=== PATIENT | female | born 1990 | race African-American/Black ===

== ENCOUNTER 2023-05-25 11:57 | Day surgery (SDC) | payer OTHER ==
[2023-05-18 16:15] VITALS: BMI 32.3
[2023-05-25] MEDS ORDERED: ONDANSETRON 4 MG/2 ML VIAL ONE (13:18)
[2023-05-25 14:36] VITALS: TEMP 98
[2023-05-25 14:39] VITALS: RESP 16
[2023-05-25 15:00] VITALS: BP 120/77; PULSE 82
== END 2023-05-25 15:20 | disposition home or self-care (01) ==
LOC: FASU-ENDO 11:57
PROVIDERS: ATTEND Internal Medicine Gastroenterology
PROC: 0DB68ZX Excision of Stomach, Via Natural or Artificial Opening Endoscopic, Diagnostic (ICD-10-PCS; 2023-05-25)
PROC: 0DB48ZX Excision of Esophagogastric Junction, Via Natural or Artificial Opening Endoscopic, Diagnostic (ICD-10-PCS; 2023-05-25)
PROC: 0DB98ZX Excision of Duodenum, Via Natural or Artificial Opening Endoscopic, Diagnostic (ICD-10-PCS; principal; 2023-05-25 13:04)
DX: K29.50 Unspecified chronic gastritis without bleeding (principal); K31.9 Disease of stomach and duodenum, unspecified; R10.13 Epigastric pain
CPT/HCPCS: 71045-TC-FY; 81025; 88305-TC; 88342-TC